=== PATIENT | female | born 1960 | race African-American/Black ===

== ENCOUNTER 2016-12-07 01:55 | Emergency (ER) | payer BC ==
[~2016-12-07] VITALS: Ht 167.6 cm; Wt 65.9 kg
[2016-12-07 04:10] LABS: HEMATOCRIT 39.4 % (36.0-46.0); MCH 28.2 PG (29.0-34.0); MCHC 32.7 G/DL (30.0-36.0); MEAN PLAT.VOLUME 10.2 uM^3 (9.5-12.4); PLATELET COUNT 252 K/uL (156-360); RBC DIS.WIDTH-SD 40.4 % (39-53); RED BLOOD COUNT 4.58 M/uL (3.80-5.20); WHITE BLOOD COUNT 5.6 K/uL (4.1-10.2)
[2016-12-07 04:18] LABS: CHLORIDE 107 mEq/L (99-109); POTASSIUM 3.6 mEq/L (3.7-5.4); SODIUM 141 mEq/L (136-147)
[2016-12-07 04:20] LABS: INTER. NORMALIZED RATIO 1.1; PROTHROMBIN TIME 10.7 (9.2-11.2); PTT 26.8 (25-32)
[2016-12-07 04:21] LABS: GLUCOSE 122 mg/dL (70-99)
[2016-12-07 04:22] LABS: ANION GAP 9 MEQ/L (2-14)
[2016-12-07 04:23] LABS: TOTAL BILIRUBIN 0.3 mg/dL (0.0-1.0)
[2016-12-07 04:24] LABS: ALKALINE PHOSPHATASE 63 IU/L (3-129); GFR ESTIMATE (CALCULATED) > 59 mL/min/
[2016-12-07 04:25] LABS: UREA NITROGEN (BUN) 17 mg/dL (9-23)
[2016-12-07 04:33] LABS: TROP-I INTERPRETATION NEGATIVE; TROPONIN-I < 0.01 ng/mL (0.0-0.30)
[2016-12-07] MEDS ORDERED: ZOLPIDEM TARTRAT5 MG PO (06:10)
[2016-12-07] MEDS ORDERED: PROTONIX40 MG PO (06:12)
[2016-12-07 06:43] VITALS: BP 134/83
== END 2016-12-07 06:44 | disposition short-term general hospital (02) ==
LOC: EME 01:55
PROVIDERS: Emergency Medicine
DX: I61.5 Nontraumatic intracerebral hemorrhage, intraventricular (principal); M54.2 Cervicalgia; R07.9 Chest pain, unspecified; G91.9 Hydrocephalus, unspecified; R11.0 Nausea
CPT/HCPCS: 70450; 71020; 80053; 84484; 85027; 85610; 85730; 93005; 99281; 99285; J1200; J2765; J7030

== ENCOUNTER 2017-02-26 09:28 | Emergency (ER) | payer BC ==
[~2017-02-26] VITALS: Ht 167.6 cm; Wt 65.5 kg
[~2017-02-26 09:28] MED LIST: PROTONIX40 MG PO; ZOLPIDEM TARTRAT5 MG PO
[2017-02-26 10:33] LABS: EOSINOPHIL (%) 2.9 % (0-5); EOSINOPHIL COUNT 0.1 K/uL (0-0.3); HEMATOCRIT 40.7 % (36.0-46.0); IMMATURE GRANULOCYTE (%) 0.6 % (0.0-0.7); INSTRUMENT ABS NEUTROPHIL CT 1.9 K/uL; LYMPHOCYTE COUNT 0.7 K/uL (1.0-2.8); MCH 27.6 PG (29.0-34.0); MCHC 32.2 G/DL (30.0-36.0); MCV 85.9 FL (83-99); MEAN PLAT.VOLUME 9.7 uM^3 (9.5-12.4); MONOCYTE (%) 11.9 % (3-12); MONOCYTE COUNT 0.4 K/uL (0-0.8); NEUTROPHIL (%) 60.4 % (45-76); NEUTROPHIL COUNT 1.9 K/uL (1.8-6.4); PLATELET COUNT 296 K/uL (156-360); RBC DIS.WIDTH-SD 40.7 % (39-53); RED BLOOD COUNT 4.74 M/uL (3.80-5.20); WHITE BLOOD COUNT 3.1 K/uL (4.1-10.2)
[2017-02-26 10:34] LABS: PROTHROMBIN TIME 11.3 SEC (10.2-12.9)
[2017-02-26 10:37] LABS: PTT 32.8 SEC (25-37)
[2017-02-26 10:40] LABS: CHLORIDE 110 mEq/L (99-109); POTASSIUM 4.1 mEq/L (3.7-5.4); SODIUM 146 mEq/L (136-147)
[2017-02-26 10:41] LABS: GLUCOSE 79 mg/dL (70-99)
[2017-02-26 10:43] LABS: ANION GAP 6 MEQ/L (2-14)
[2017-02-26 10:45] LABS: GFR ESTIMATE (CALCULATED) > 59 mL/min/
[2017-02-26 10:46] LABS: UREA NITROGEN (BUN) 11 mg/dL (9-23)
[2017-02-26 10:48] LABS: TROP-I INTERPRETATION NEGATIVE; TROPONIN-I < 0.01 ng/mL (0.0-0.30)
[2017-02-26 13:37] LABS: TROP-I INTERPRETATION NEGATIVE; TROPONIN-I 0.01 ng/mL (0.0-0.30)
[2017-02-26] MEDS ORDERED: FLEXERIL10 MG PO (14:16)
[2017-02-26 14:40] VITALS: BP 137/86
== END 2017-02-26 14:50 | disposition home or self-care (01) ==
LOC: EME 09:28
PROVIDERS: Emergency Medicine
DX: M54.6 Pain in thoracic spine (principal); R07.9 Chest pain, unspecified; M79.1 Myalgia; R91.8 Other nonspecific abnormal finding of lung field
CPT/HCPCS: 71010; 71275; 80048; 84484; 85025; 85610; 85730; 93005; 99281; 99285; J7030